=== PATIENT | female | born 1970 | race Caucasian/White ===

== ENCOUNTER 2019-08-26 12:10 | Day surgery (SDC) | payer OTHER ==
[2019-08-26] MEDS ORDERED: Depo-Medrol 40 MG/ML IM ONE (12:11)
[2019-08-26] MEDS ORDERED: Marcaine 0.5% SDV 10 ML IJ ONE (12:11)
[2019-08-26] MEDS ORDERED: DIPRIVAN 200 MG/20 ML IV ONE (13:02)
[2019-08-26] MEDS ORDERED: Ketamine HCl 50 MG/ML ONE (13:02)
--- NOTE | 2019-08-26 15:43 | XRAY ---
Indication: Bilateral SI joint injection. Intraoperative fluoroscopy was provided 8 seconds. 4 digital spot images submitted for interpretation demonstrates posterior needle tip projecting over the inferior left and right SI joint. Correlate with intraoperative findings/report.
--- NOTE | 2019-08-26 15:43 | XRAY ---
8 seconds fluoroscopy time in surgery for bilateral SI joint injections.
[2019-08-26] MEDS ORDERED: Lactated Ringers 1,000 ML IV ONE (16:01)
== END 2019-08-26 13:36 | disposition home or self-care (01) ==
LOC: SDC-PAIN 12:10
PROVIDERS: ATTEND Psychiatry & Neurology Pain Medicine
DX: M46.1 Sacroiliitis, not elsewhere classified (principal); M06.9 Rheumatoid arthritis, unspecified; L40.50 Arthropathic psoriasis, unspecified; Z79.899 Other long term (current) drug therapy
CPT/HCPCS: 72202; 77002; 84703; G0260; 27096; J1030; J2704

== ENCOUNTER 2019-09-30 09:14 | Day surgery (SDC) | payer OTHER ==
[2019-09-30] MEDS ORDERED: Decadron 4 MG INJ IV ONE (09:15)
[2019-09-30] MEDS ORDERED: Xylocaine 1% Vial 30 ML PF IJ ONE (09:15)
[2019-09-30] MEDS ORDERED: DIPRIVAN 200 MG/20 ML IV ONE (10:27)
[2019-09-30] MEDS ORDERED: Ketamine HCl 50 MG/ML ONE (10:27)
--- NOTE | 2019-09-30 11:59 | XRAY ---
Indication: Left piriformis muscle injection. Intraoperative fluoroscopy was provided for 21 seconds. Single digital spot image submitted for interpretation demonstrates posterior needle tip projecting over the expected left piriformis muscle. Small amount of contrast injected for needle tip placement. Correlate with intraoperative findings/report.
--- NOTE | 2019-09-30 13:06 | XRAY ---
21 seconds fluoroscopy time in surgery for left piriformis muscle injection.
[2019-09-30] MEDS ORDERED: Lactated Ringers 1,000 ML IV ONE (13:31)
== END 2019-09-30 10:55 | disposition home or self-care (01) ==
LOC: SDC-PAIN 09:14
PROVIDERS: ATTEND Psychiatry & Neurology Pain Medicine
DX: M79.18 Myalgia, other site (principal); M54.32 Sciatica, left side; M06.9 Rheumatoid arthritis, unspecified; K21.9 Gastro-esophageal reflux disease without esophagitis; L40.50 Arthropathic psoriasis, unspecified; Z79.899 Other long term (current) drug therapy
CPT/HCPCS: 20552; 72020; 77002; 84703; J1100; J2001; J2704; Q9966

== ENCOUNTER 2020-03-09 11:25 | Day surgery (SDC) | payer OTHER ==
[~2020-03-09 11:25] MED LIST: DIPRIVAN 200 MG/20 ML IV ONE; Ketamine HCl 50 MG/ML ONE
[2020-03-09] MEDS ORDERED: Depo-Medrol 40 MG/ML IM ONE (11:26)
[2020-03-09] MEDS ORDERED: Decadron 4 MG INJ IV ONE (11:26)
[2020-03-09] MEDS ORDERED: Marcaine 0.5% SDV 10 ML IJ ONE (11:26)
[2020-03-09] MEDS ORDERED: Xylocaine 1% Vial 30 ML PF IJ ONE (11:26)
[2020-03-09] MEDS ORDERED: Versed 2 MG/2 ML Injection ONE (12:20)
[2020-03-09] MEDS ORDERED: VERSED 5 MG/5 ML ONE (12:20)
--- NOTE | 2020-03-09 14:16 | XRAY ---
Indication: Left piriformis muscle injection. Intraoperative fluoroscopy was provided for 14 seconds. Single digital spot image submitted for interpretation demonstrates posterior needle tip projecting over the expected left piriformis muscle. Small amount of contrast injected for needle tip placement. Correlate with intraoperative findings/report.
--- NOTE | 2020-03-09 14:18 | XRAY ---
Indication: Bilateral SI joint injection. Intraoperative fluoroscopy was provided for 8 seconds. 4 digital spot images submitted for interpretation demonstrates posterior needle tip projecting over the inferior left and right SI joints. Correlate with intraoperative findings/report.
--- NOTE | 2020-03-09 14:22 | XRAY ---
8 seconds fluoroscopy time in surgery for bilateral SI joint injections.
--- NOTE | 2020-03-09 14:32 | XRAY ---
14 seconds fluoroscopy time in surgery for left piriformis muscle injection.
[2020-03-09] MEDS ORDERED: Lactated Ringers 1,000 ML IV ONE (16:36)
== END 2020-03-09 13:00 | disposition home or self-care (01) ==
LOC: SDC-PAIN 11:25
PROVIDERS: ATTEND Psychiatry & Neurology Pain Medicine
DX: M46.1 Sacroiliitis, not elsewhere classified (principal); M79.18 Myalgia, other site; M06.9 Rheumatoid arthritis, unspecified; K21.9 Gastro-esophageal reflux disease without esophagitis; L40.50 Arthropathic psoriasis, unspecified; Z79.899 Other long term (current) drug therapy
CPT/HCPCS: 20552; 27096; 72020; 72202; 77002; 84703; J1030; J1100; J2001; J2250; J2704; Q9966; G0260

== ENCOUNTER 2022-01-17 12:54 | Day surgery (SDC) | payer OTHER ==
[2022-01-17] MEDS ORDERED: Sodium Chloride 0.9(Preservative Free) 10 ML IJ ONE (12:55)
[2022-01-17] MEDS ORDERED: Depo-Medrol 40 MG/ML IM ONE (12:55)
[2022-01-17] MEDS ORDERED: Versed 2 MG/2 ML Injection ONE (14:20)
[2022-01-17] MEDS ORDERED: Lactated Ringers 1,000 ML IV ONE (15:03)
[2022-01-17] MEDS ORDERED: DIPRIVAN 200 MG/20 ML IV ONE ×2 (15:35→15:41)
[2022-01-17] MEDS ORDERED: MORPHINE SULFATE 2 MG INJ ONE ×2 (15:50→15:58)
[2022-01-17] MEDS ORDERED: TORAdol 30 mg Injection ONE (16:08)
--- NOTE | 2022-01-17 16:37 | XRAY ---
Indication: Left L4-S1 transforaminal ALEJANDRO. Intraoperative fluoroscopy provided for 35 seconds. 5 digital spot image submitted for interpretation demonstrates posterior needle tips projecting over the expected left L4 and L5 nerve roots. Small amount of contrast injected for needle tip placement. Correlate with intraoperative findings/report.
--- NOTE | 2022-01-17 17:07 | XRAY ---
35 seconds of fluoroscopy was used in surgery for a left L4-S1 transforaminal ALEJANDRO.
== END 2022-01-17 16:00 | disposition home or self-care (01) ==
LOC: SDC-PAIN 12:54
PROVIDERS: ATTEND Psychiatry & Neurology Pain Medicine
DX: M54.16 Radiculopathy, lumbar region (principal); Z79.899 Other long term (current) drug therapy
CPT/HCPCS: 64483; 64484; 72100; 77003; 84703; J1030; J1885; J2250; J2270; J2704; Q9966

== ENCOUNTER → 2022-02-14 | Day surgery (SDC) | payer OTHER ==
[~2022-02-14] MED LIST changes: +Decadron 4 MG INJ IV ONE; +Depo-Medrol 40 MG/ML IM ONE; -Ketamine HCl 50 MG/ML ONE; +Lactated Ringers 1,000 ML IV ONE; +MORPHINE SULFATE 2 MG INJ ONE; +Marcaine Mpf 0.5% Vial 30 Ml IJ ONE; +Versed 2 MG/2 ML Injection ONE
--- NOTE | 2022-02-14 14:34 | XRAY ---
Indication: Left SI and left piriformis injections. Intraoperative fluoroscopy provided for 40 seconds. 3 digital spot image submitted for interpretation demonstrates needle tip projecting over the inferior left SI joint. Second needle tip projects over the left piriformis muscle with small amount of contrast was injected for needle tip placement. Correlate with intraoperative findings/report.
--- NOTE | 2022-02-14 16:00 | XRAY ---
40 seconds of fluoroscopy was used in surgery for a left SI and left piriformis injections.
== END ==
LOC: SDC-PAIN 12:24
PROVIDERS: ATTEND Psychiatry & Neurology Pain Medicine
DX: M46.1 Sacroiliitis, not elsewhere classified (principal); M79.18 Myalgia, other site; Z79.899 Other long term (current) drug therapy
CPT/HCPCS: 20552; 27096; 72202; 77002; 81025; G0260; J1030; J1100; J2250; J2270; J2704; Q9966